=== PATIENT | male | born 2000 | race Hispanic/Latino ===

== ENCOUNTER 2021-06-15 03:31 | Emergency (ER) | payer OTHER ==
[2021-06-15] MEDS ORDERED: KETOROLAC 30 MG/ML INJ ONE (03:55)
--- NOTE | 2021-06-15 05:00 | EDPHYS ---
Physician Documentation [facility] Name: Andi Mcdermott Age: 20 yrs Sex: Male : 2000 Arrival Date: 06/15/2021 Time: 03:40 Bed 5 Private MD: ED Physician Richard Cota HPI: 06/15 03:53 This 20 yrs old Male presents to ER via Wheelchair with complaints of Back mh7 Injury. 03:53 The patient presents with pain that is acute, with no known mechanism of injury. The mh7 symptoms are located in the low back. Onset: The symptoms/episode began/occurred today, at 02:45. The pain does not radiate. Associated signs and symptoms: Pertinent negatives: abdominal pain, chest pain, constipation, dysuria, fever, headache, hematuria, incontinence, nausea, numbness, tingling, urinary retention, vomiting, weakness. The problem was sustained from unknown cause. Modifying factors: The patient symptoms are alleviated by nothing, the patient symptoms are aggravated by movement, standing, walking. Severity of symptoms: At their worst the symptoms were moderate, earlier today, in the emergency department the symptoms are unchanged. Historical: - Allergies: 03:47 seasonal allergies; em - PMHx: 03:47 None; em - PSHx: 03:47 None; em - Social history:: Smoking status: Patient denies any tobacco usage or history of. ROS: 03:53 Constitutional: Negative for fever, chills, and weight loss, Eyes: Negative for injury, mh7 pain, redness, and discharge, ENT: Negative for injury, pain, and discharge, Neck: Negative for injury, pain, and swelling, Cardiovascular: Negative for chest pain, palpitations, and edema, Respiratory: Negative for shortness of breath, cough, wheezing, and pleuritic chest pain, Abdomen/GI: Negative for abdominal pain, nausea, vomiting, diarrhea, and constipation, : Negative for injury, bleeding, discharge, and swelling, MS/Extremity: Negative for injury and deformity, Skin: Negative for injury, rash, and discoloration, Neuro: Negative for headache, weakness, numbness, tingling, and seizure, Psych: Negative for depression, anxiety, suicide ideation, homicidal ideation, and hallucinations, Allergy/Immunology: Negative for hives, rash, and allergies, Endocrine: Negative for neck swelling, polydipsia, polyuria, polyphagia, and marked weight changes, Hematologic/Lymphatic: Negative for swollen nodes, abnormal bleeding, and unusual bruising. Exam: 03:53 Constitutional: This is a well developed, well nourished patient who is awake, alert, mh7 and in no acute distress. Head/Face: Normocephalic, atraumatic. Eyes: Pupils equal round and reactive to light, extra-ocular motions intact. Lids and lashes normal. Conjunctiva and sclera are non-icteric and not injected. Cornea within normal limits. Periorbital areas with no swelling, redness, or edema. Neck: Trachea midline, no thyromegaly or masses palpated, and no cervical lymphadenopathy. Supple, full range of motion without nuchal rigidity, or vertebral point tenderness. No Meningismus. Chest/axilla: Normal chest wall appearance and motion. Nontender with no deformity. No lesions are appreciated. Cardiovascular: Regular rate and rhythm with a normal S1 and S2. No gallops, murmurs, or rubs. Normal PMI, no JVD. No pulse deficits. Respiratory: Lungs have equal breath sounds bilaterally, clear to auscultation and percussion. No rales, rhonchi or wheezes noted. No increased work of breathing, no retractions or nasal flaring. Abdomen/GI: Soft, non-tender, with normal bowel sounds. No distension or tympany. No guarding or rebound. No evidence of tenderness throughout. Skin: Warm, dry with normal turgor. Normal color with no rashes, no lesions, and no evidence of cellulitis. MS/ Extremity: Pulses equal, no cyanosis. Neurovascular intact. Full, normal range of motion. 03:53 Psych: Awake, alert, with orientation to person, place and time. Behavior, mood, and affect are within normal limits. 03:53 Neuro: Orientation: is normal, Mentation: is normal, Memory: is normal, Cranial nerves: grossly normal, Cerebellar function: is grossly normal, Motor: is normal, Sensation: is normal, Gait: limited by pain, seizure activity, is not displayed by the patient, Abnormal movements: there are no abnormal movements. 03:53 Back: pain, that is mild, ROM is painful, with rotation to the right, normal spinal mh7 alignment noted, CVA tenderness, is absent, muscle spasm, is appreciated in the lumbar area and right low back, Straight leg raises: of both lower extremities does not illicit pain. Vital Signs: 03:44 BP 144 / 85; Pulse 97; Resp 18; Temp 98.9; Pulse Ox 100% on R/A; Weight 102.06 kg; em Height 5 ft. 10 in. (177.80 cm); 03:44 Body Mass Index 32.28 (102.06 kg, 177.80 cm) em MDM: 04:57 Differential diagnosis: arthritis, chronic back pain, Fracture Ligament Injury mh7 Osteoarthritis ruptured disc, sprain, vertebral fracture. Data reviewed: vital signs, nurses notes, radiologic studies, CT scan. Data interpreted: Pulse oximetry: on room air is 100 %. Interpretation: normal. Counseling: I had a detailed discussion with the patient and/or guardian regarding: the historical points, exam findings, and any diagnostic results supporting the discharge/admit diagnosis, the presence of at least one elevated blood pressure reading (>120/80) during this emergency department visit, radiology results, the need for outpatient follow up, a neurosurgeon, to return to the emergency department if symptoms worsen or persist or if there are any questions or concerns that arise at home. Response to treatment: the patient's symptoms have markedly improved after treatment. 05:00 Patient medically screened. [facility] 06/15 03:52 Order name: CT Lumbar Spine Wo Con [facility] Administered Medications: 03:56 Drug: Ketorolac 60 mg Route: IM; Site: left deltoid; dc2 04:40 Follow up: Response: Pain is decreased dc2 Disposition Summary: 06/15/21 05:00 Discharge Ordered Location: Home [facility] Problem: an acute exacerbation [facility] Symptoms: have improved [facility] Condition: Stable [facility] Diagnosis - Low back pain - Disc protrusion 7 Followup: 7 - With: Private Physician - When: 1 - 2 days - Reason: Worsening of condition, Recheck today's complaints, Continuance of care, Re-evaluation by your physician Followup: [facility] - With: Andrea Dent MD - When: 1 - 2 days - Reason: Worsening of condition, Recheck today's complaints Discharge Instructions: - Discharge Summary Sheet [facility] - Acute Back Pain, Adult 7 - Herniated Disk, [id number] [facility] - Form - Excuse from Work, School, or Physical Activity [facility] Forms: - Medication Reconciliation Form [facility] - Thank You Letter [facility] - Antibiotic Education [facility] - Prescription Opioid Use [facility] Prescriptions: - Ibuprofen 800 mg Oral Tablet - take 1 tablet by ORAL route every 8 hours As needed take with food; 15 tablet; mh7 Refills: 0, Product Selection Permitted - methocarbamol 500 mg Oral Tablet - take 1 tablet by ORAL route 4 times per day; 20 tablet; Refills: 0, Product [facility] Selection Permitted Signatures: Dispatcher [employer] Shaun Gutierrez RN RN Richard Dunn MD MD 7 Angela Sotomayor RN RN dc2 Corrections: (The following items were deleted from the chart) 03:47 03:47 Allergies: No Known Allergies; em em
--- NOTE | 2021-06-15 05:00 | ER ---
Nurse's Notes [facility] Name: Andi Mcdermott Age: 20 yrs Sex: Male : 2000 Arrival Date: 06/15/2021 Time: 03:40 Bed 5 Private MD: Diagnosis: Low back pain-Disc protrusion Presentation: 06/15 03:44 Chief complaint: Patient states: threw back out after standing up, denies any trauma, em pain is mostly in the right lower side, pain does not radiate. Coronavirus screen: Vaccine status: Patient reports being unvaccinated. Ebola Screen: Patient negative for fever greater than or equal to 101.5 degrees Fahrenheit, and additional compatible Ebola Virus Disease symptoms Patient denies exposure to infectious person. Patient denies travel to an Ebola-affected area in the 21 days before illness onset. No symptoms or risks identified at this time. Initial Sepsis Screen: Does the patient meet any 2 criteria? HR > 90 bpm. No. Patient's initial sepsis screen is negative. Does the patient have a suspected source of infection? No. Patient's initial sepsis screen is negative. Risk Assessment: Do you want to hurt yourself or someone else? Patient reports no desire to harm self or others. Onset of symptoms was June 15, 2021. 03:44 Method Of Arrival: Wheelchair em 03:44 Acuity: BRAYAN 4 em Triage Assessment: 04:00 General: Appears uncomfortable, well nourished, Behavior is calm, cooperative. Pain: mr2 Complains of pain in right low back. Historical: - Allergies: 03:47 seasonal allergies; em - PMHx: 03:47 None; em - PSHx: 03:47 None; em - Social history:: Smoking status: Patient denies any tobacco usage or history of. Screenin:55 Abuse screen: Denies threats or abuse. Denies injuries from another. Nutritional dc2 screening: No deficits noted. Tuberculosis screening: No symptoms or risk factors identified. Never had TB. Fall Risk None identified. No fall in past 12 months (0 pts). No secondary diagnosis (0 pts). No IV (0 pts). Ambulatory Aid- None/Bed Rest/Nurse Assist (0 pts). Gait- Impaired (20 pts.). Mental Status- Oriented to own ability (0 pts). Total Dela Cruz Fall Scale indicates No Risk (0-24 pts). Assessment: 03:45 General: Appears in no apparent distress. uncomfortable, obese, well groomed, Behavior dc2 is calm, cooperative. 03:45 Pain: Complains of pain in Right lower back. Neuro: No deficits noted. Level of dc2 Consciousness is awake, alert, obeys commands, Oriented to person, place. Respiratory: No deficits noted. Trachea midline Breath sounds are clear bilaterally. GI: No deficits noted. No signs and/or symptoms were reported involving the gastrointestinal system. Abdomen is non-distended, obese, Bowel sounds present X 4 quads. : No signs and/or symptoms were reported regarding the genitourinary system. Derm: No deficits noted. No signs and/or symptoms reported regarding the dermatologic system. Skin is intact, is healthy with good turgor. Musculoskeletal: Tenderness present in right lower back Reports pain in Right lower back since tonight while at work. Pt difficulty walking, denies incontinence, numbness or tingling. Pain is 8 out of 10 on a pain scale. Vital Signs: 03:44 BP 144 / 85; Pulse 97; Resp 18; Temp 98.9; Pulse Ox 100% on R/A; Weight 102.06 kg; em Height 5 ft. 10 in. (177.80 cm); 03:44 Body Mass Index 32.28 (102.06 kg, 177.80 cm) em ED Course: 03:40 Patient arrived in ED. wm 03:44 Richard Cota MD is Attending Physician. 7 03:45 Patient has correct armband on for positive identification. Bed in low position. Call dc2 light in reach. Side rails up X 1. monitoring tech on. Pulse ox on. NIBP on. Door closed. Lights dimmed. 03:46 Triage completed. em 03:47 Arm band placed on. em 03:51 Stuart Estrada RN is Primary Nurse. mr2 03:56 Assist provider with bone marrow aspiration. dc2 04:[address] dc2 04:[address] back from [address]. dc2 04:12 CT Lumbar Spine Wo Con In Process Unspecified. EDMS 04:59 Andrea Dent MD is Referral Physician. mh7 05:06 Patient did not have IV access during this emergency room visit. dc2 Administered Medications: 03:56 Drug: Ketorolac 60 mg Route: IM; Site: left deltoid; dc2 04:40 Follow up: Response: Pain is decreased dc2 Outcome: 05:00 Discharge ordered by . autumn 05:07 Discharged to home ambulatory. dc2 05:07 Condition: stable 05:07 Discharge instructions given to patient, Instructed on discharge instructions, Demonstrated understanding of instructions, follow-up care, medications, Prescriptions given X 3. 05:07 Patient left the ED. dc2 Signatures: Dispatcher [employer] Shaun Gutierrez, RN RN Richard Cota MD MD 7 Laly Elizabeth Mike, RN RN 2 Angela Sotomayor RN RN dc2 Corrections: (The following items were deleted from the chart) 03:47 03:47 Allergies: No Known Allergies; [facility] 04:00 03:45 Pain: Complains of pain in Right lower back dc2 dc2
[2021-06-15 05:14] VITALS: BP 144/85; TEMP 98.9; O2SAT 100
--- NOTE | 2021-06-15 11:11 | RAD REPORT ---
EXAM DESCRIPTION: CTSpine Lumbar Wo Con06/15/2021 6:29 am CLINICAL HISTORY: 20 years Male LOWER BACK PAIN TECHNIQUE: Noncontrast lumbar spine CT with sagittal and coronal reconstructions. All CT scans at [facility] facility use dose modulation, iterative reconstruction, and/or weight based dosing when appropriat e to reduce radiation dose to as low as reasonably achievable. COMPARISON: None. FINDINGS: No acute fracture. Canal: Broad central disc protrusion at L4-L5 with mild spinal canal stenosis. Alignment: Normal. Soft tissues: Unremarkable. Other: Visualized retroperitoneal structures are unremarkable. IMPRESSION 1. No [id number] findings. 2. Broad central disc protrusion at L4-L5 with mild spinal canal stenosis. This can be further evalua leandro with MRI. Electronically signed by: Fito Hernandez MD 06/15/2021 4:49 AM [employer]ERILE INSTRUMENT TECHNICIAN Due to temporary technical issues with the PACS/Fluency reporting system, reports are being signed by the in house radiologists without review as a courtesy to insure prompt reporting. The interpreting radiologist is fully responsible for the content of the report.
--- OUTSIDE RECORDS SUMMARY | 2021-06-20 16:15 | XMS REPORT | Continuity of Care Document ---
:[address] [facility] Address [address] [place] [address] Care Team Providers Name Role Phone John HURTADO Attending Clinician Gladis Tsai MD Attending Clinician Dinh Arango Attending Clinician Dinh NEUMANN Attending Clinician Unavailable John HURTADO Admitting Clinician Payers Payer Name Policy Type Policy Number Effective Date Expiration Date S ource Problems Condition Condition Condition Status Onset Resolution Last Treating Co mments Source Name Details Category Date Date Treatment Clinician Date Weight Weight Disease Active 2020-0 Univers loss, loss, 8-22 [place] [facility] No known No known Disease Unive rs active active ity of problems problems [facility] Allergies, Adverse Reactions, Alerts Allergy Allergy Status Severity Reaction(s) Onset Inactive Treating Comm ents Source Name Type Date Date Clinician Amoxicil Propensi Active Rash 2020-0 Univer s naima-Pot ty to 8-22 ity of Clavulan adverse 00:00: [place] ate reaction 00 [facility] Branch AMOXICIL DRUG Active Rash 2020-0 Univers NAIMA-POT 8-22 ity of CLAVULAN 00:00: [place] ATE 00 Medical Branch Social History Social Habit Start Date Stop Date Quantity Comments Source Sex Assigned At Uni versity of [facility] Exposure to SARS-CoV-2 Not sure [facility] [place] (event) [facility] Smoking Status Start Date Stop Date Source Unknown if ever smoked [facility] y [facility] Medications Ordered Filled Start Stop Current Ordering Indication Dosage Frequency Signature Comments Components Source Medication Medication Date Date Medication? Clinician (SIG) Name Name D5W 0.45% 2020-0 Yes IV Univers NaCl 8-23 Infusion, ity of (1/2NS) 1 L 03:00[place] 125 [place] + KCL 20 00 mL/hr, Medical mEq CONTINUOUS Branch , Starting 03/29/20 at 2200, Until Discontinu ed, Routine acetaminoph 2020-0 Yes 650mg 650 mg, Un juan josé en 03-30 Oral, ity of (TYLENOL) 02:52: Q6HPRN, [place] tablet 650 16 Starting Medic al mg Sat Branch 03/29/20 at 2152, Until Discontinu ed, Routine, Pain (scale 1-3) ondansetron 2020-0 Yes 4mg 4 mg, Slow Univers (ZOFRAN 03-30 IV Push, ity of (PF)) 02:52: Q6HPRN, [place] injection 4 13 Starting Medi dejuan mg Sat Branch 03/29/20 at 2152, Until Discontinu ed, Routine, Nausea and Vomiting (N/V) cefOXitin 2020-0 2020- No 2g 2 g, IV Univ ers in 03-30 Piggyback, ity of dextrose, 01:00: 00:37 ONCE, 1 [place] iso-osm 00 :00 dose, Sat Medical (MEFOXIN) 2 03/29/20 at Br anch gram/50 mL 2000, 50 DUPLEX BAG mL
Reas 2 g on for Anti-Infec tive: Empiric Non-Surgic al Prophylaxi s
Durat ion of therapy: 72 hours ciprofloxac 2020-0 Yes [id number] 500mg Take 1 Univers in HCl 8-23 tablet by ity of (CIPRO) 500 00:00: mouth [place] mg tablet 00 every 12 Medica l (twelve) Branch hours. metroNIDAZO 2020-0 Yes [id number] 500mg Take 1 Univers LE (FLAGYL) 8-23 tablet by ity of 500 mg 00:00: mouth [place] tablet 00 every 8 Medical (eight) Branch hours. ondansetron 2020-0 Yes [id number] 4mg Take 1 Univers 4 mg tablet 8-23 tablet by ity of 00:00: mouth [place] 00 every 8 Medical (eight) Branch hours as needed for Nausea and Vomiting (N/V). acetaminoph 2020-0 2020- No [id number] 650mg Take 2 Univers en 325 mg 03-30 08-24 tablets by ity of tablet 00:00: 04:59 mouth [place] 00 :00 every 6 Medical (six) Branch hours as needed for Pain (scale 1-3) or Pain (scale 4-6). iohexol 2019- No 100mL 100 mL, Unive rs (OMNIPAQUE 03-29 Intravenou it y of 350 22:45: 22:26 s, ONCE, 1 [place] BULK-100 00 :00 dose, Sat Medica l mL) 03/29/20 at Branch injection 1745, 100 mL Routine ondansetron No 4mg 4 mg, Slow Univers (ZOFRAN 03-29 IV Push, ity of (PF)) 22:15: 21:04 ONCE, 1 [place] injection 4 00 :00 dose, Sat Med ical mg 03/29/20 at Branch 1715, ASIA NaCl 0.9% No 1000mL at 999 Uni vers (NS) bolus 03-29 mL/hr, ity of infusion 21:00: 22:01 1,000 mL, [place] as 1,000 mL 00 :00 IV Medical Infusion, Branch ONCE, 1 dose, 03/29/20 at 1600, ASIA No known No Univers medications [facility] Vital Signs Vital Name Observation Time Observation Value Comments Source Systolic blood 2020-03-30 17:38:00 141 mm[Hg] Univer sity of pressure [facility] Diastolic blood 2020-03-30 17:38:00 89 mm[facility]Hg[facility] rate 2020-03-30 17:38:00 53 /min [facility] Body temperature 2020-03-30 17:38:00 36.11 [facility] Respiratory rate 2020-03-30 17:38:00 18 /min [facility] Oxygen saturation in 2020-03-30 17:38:00 98 /min [facility] Arterial blood by [facility] Pulse oximetry [place] Body height 2020-03-30 04:30:00 172.7 cm [facility] Body weight 2020-03-30 04:30:00 83.099 kg [facility] BMI 2020-03-30 04:30:00 27.86 kg/m2 [facility] Systolic blood 2020-03-30 00:00:00 137 mm[Hg] Univer sity of pressure [facility] Diastolic blood 2020-03-30 00:00:00 97 [facility]Hg[facility] Heart rate 2020-03-30 00:00:00 75 /min [facility] Body temperature 2020-03-30 00:00:00 36.83 [facility] Respiratory rate 2020-03-30 00:00:00 27 /min [facility] Oxygen saturation in 2020-03-30 00:00:00 98 /min [facility] Arterial blood by [facility] Pulse oximetry [place] Body weight 2020-03-29 20:35:00 83.008 kg [facility] Procedures Procedure Date / Time Performed Performing Clinician Sourc e PHOSPHORUS 2020-03-30 10:13:00 [facility] MAGNESIUM 2020-03-30 10:13:00 [facility] BASIC METABOLIC PANEL 2020-03-30 10:13:00 [facility] (NA, K, CL, CO2, [facility] Branch GLUCOSE, BUN, CREATININE, CA) CBC WITH DIFF 2020-03-30 10:13:00 [facility] COVID-19 (ID NOW RAPID 2020-03-29 23:15:00 Yury Neumann [facility] TESTING) [facility] CT ABDOMEN PELVIS W 2020-03-29 22:31:21 Yury Neumann [facility] CONTRAST [facility] ADC / LCC - DRUG 2020-03-29 20:57:[address] [facility] SCREEN TRIAGE Medical Branch LIPASE 2020-03-29 20:57:00 Yury Neumann [facility] HEPATIC FUNCTION PANEL 2020-03-29 20:57:00 Yury Neumann [facility] ([id number]) Medical [place] (ALB,T.PRO,BILI T,BU/BC,ALT,AST,ALK PHOS) BASIC METABOLIC PANEL 2020-03-29 20:57:00 Yury Neumann [facility] (NA, K, CL, CO2, Medical Branch GLUCOSE, BUN, CREATININE, CA) CBC WITH DIFF 2020-03-29 20:57:00 Yury Neumann [facility] URINALYSIS 2020-03-29 20:57:00 Yury Neumann [facility] Encounters Start End Encounter Admission Attending Care Care Encounter Source Date/Time Date/Time Type Type Clinicians Facility Department ID 2020-03-29 2020-03-30 Emergency Javier Lopez [id number] Univers 20:15:00 17:49:00 Jani Tsai [id number] [facility] [id number] [facility] [id number] [facility] 091 Branch 2020-03-29 2020-03-29 Emergency X [facility] ERT [id number] Univers 20:12:00 20:12:00 [facility] 2020-03-29 2020-03-29 Emergency Yury Neumann [facility] [id number] Univers 15:38:00 19:38:00 Javier Lopez [id number] [facility] [id number] [facility] [id number] [facility] [place] 084 Branch 2020-03-29 2020-03-29 Emergency X [facility] ERT [id number] Univers 15:38:00 15:38:00 [facility] Results Test Description Test Time Test Comments Results Result Comments Source Basic Metabolic Panel (NA, K, CL, CO2, GLUCOSE, BUN, 2020-03 11:36:00 CREATININE, CA) Test Item Value Reference Range Interpretation Comme nts NA (test code = 0689376098) 140 mmol/L 135-145 K (test code = 3189931805) 4.0 mmol/L 3.5-5 CL (test code = 9060856904) 105 mmol/L 98-108 CO2 TOTAL (test code = 3552796748) 29 mmol/L 23-31 AGAP (test code = 1586603121) 2-16 BUN (test code = 3344526666) 3 mg/dL 7-23 L GLUCOSE (test code = 7282533711) 86 mg/dL 70-110 CREATININE (test code = 0.80 mg/dL 0.6-1.25 3214452771) CALCIUM (test code = 9627014216) 9.4 mg/dL 8.6-10.6 eGFR Calculation (Non- mL/min/1.73m2 [place]) (test code = 3278683717) eGFR Calculation ( mL/min/1.73m2 [place]) (test code = 1284200532) ELAINA (test code = ELAINA) Association of Glomerular Filtration Rate (GFR) and Staging of Kidney Disease* + +-------- + ------+| GFR (mL/min/1.73 m2) ?| With Kidney Damage ?| ?Without Kidney Damage+ +-- + +| ?>90 ?| ?Stage one ?| ? Normal ?+ +------- + -------+| ?60-89 ?| ?Stage two ?| ? Decreased GFR ? + +-------- + ------+| ?30-59 ?| ?Stage three ?| ? Stage three ? + +-------- + ------+| ?15-29 ?| ?Stage four ? | ? Stage four ?+ +------- + -------+| ?<15 (or dialysis) ? ?| ?Stage five ? | ? Stage five ?+ +------- + -------+ *Each stage assumes the associated GFR level has been in effect for at least three months. ?Stages 1 to 5, with or without kidney disease, indicate chronic kidney disease. Notes: Determination of stages one and two (with eGFR >59mL/min/1.73 m2) requires estimation of kidney damage for at least three months as defined by structural or functional abnormalities of the kidney, manifested by either:Pathological abnormalities or Markers of kidney damage (including abnormalities in the composition of the blood or urine or abnormalities in imaging tests). Lab Interpretation (test code = Abnormal 91754-7) [facility] [id number] 11:36:00 Test Item Value Reference Range Interpretation Comments MAGNESIUM (test code = 3322985944) 2.1 mg/dL 1.7-2.4 Lab Interpretation (test code = Normal 86388-5) [facility] [id number] 11:36:00 Test Item Value Reference Range Interpretation Comments PHOSPHORUS (test code = 5320044174) 4.8 mg/dL 2.5-5 Lab Interpretation (test code = Normal 90489-1) [facility] with [id number] 10:47:00 Test Item Value Reference Range Interpretation Comments WBC (test code = See_Comment [Automated 6690-2) message] The sy stem which generated this result transmitted reference range : 4.50 - 13.50 10*3/?L. The reference range was not used to interpret this result as normal/abnormal . RBC (test code = See_Comment H [Automated 789-8) message] The sy stem which generated this result transmitted reference range : 4.50 - 5.30 10*6/?L. The reference range was not used to interpret this result as normal/abnormal . HGB (test code = 15.8 g/dL 13-16 718-7) HCT (test code = 48.2 % 37-49 4544-3) MCV (test code = 89.9 fL 78-95 787-2) MCH (test code = 29.5 pg 26-32 785-6) MCHC (test code = 32.8 g/dL 32-36 786-4) RDW-SD (test code = 41.8 fL 38.5-49 67213-2) RDW-CV (test code = 12.6 % 11.5-14 788-0) PLT (test code = See_Comment [Automated 777-3) message] The sy stem which generated this result transmitted reference range : 133 - 320 10*3/ ?L. The reference r juan was not used to interpret this result as normal/abnormal . MPV (test code = 12.0 fL 9.3-12.9 66108-4) NRBC/100 WBC (test See_Comment [Automat ed code = 2655633297) message] The system which generated this result transmitted reference range : 0.0 - 10.0 /100 WBCs. The refer ence range was not u sed to interpret th is result as normal/abnormal . NRBC x10^3 (test code <0.01 See_Comment [Auto mated = 9871089155) message] The s ystem which generated this result transmitted reference range : 10*3/?L. The reference range was not used to interpret this result as normal/abnormal . GRAN MAT (NEUT) % 50.7 % (test code = 770-8) IMM GRAN % (test code 0.30 % = 2169380718) LYMPH % (test code = 39.3 % 736-9) MONO % (test code = 8.7 % 5905-5) EOS % (test code = 0.4 % 713-8) BASO % (test code = 0.6 % 706-2) GRAN MAT x10^3(ANC) 4.05 10*3/uL 1.5-10.3 (test code = 9231740449) IMM GRAN x10^3 (test <0.03 0-0.06 code = 5502525957) LYMPH x10^3 (test code 3.13 10*3/uL 0.7-7.4 = 731-0) MONO x10^3 (test code 0.69 10*3/uL 0-0.5 H = 742-7) EOS x10^3 (test code = 0.03 10*3/uL 0-0.4 711-2) BASO x10^3 (test code 0.05 10*3/uL 0-0.1 = 704-7) Lab Interpretation Abnormal (test code = 63187-8) [facility] (ID NOW RAPID TESTING)2020-03-30 00:14:00 Test Item Value Reference Range Interpretation Comments SARS-CoV-2 Rapid ID NOW Not Detected Not Detected (test code = 60388-4) ELAINA (test code = ELAINA) ID NOW COVID-19 Assay is an isothermal nucleic acid amplification test intended for the qualitative detection of nucleic acid from SARS-CoV-2 viral RNA in nasopharyngeal (CLINICAL OPERATIONS LEADER) specimens. It is used under Emergency Use Authorization (EUA) by FDA. The limit of detection (LOD) of the assay is 125 Genome Equivalents/mL. A positive result is indicative of the presence of SARS-CoV-2 RNA. ?Clinical correlation with patient history and other diagnostic information is necessary to determine patient infection status. A negative (Not Detected) result does not preclude SARS-CoV-2 infection. In patients with clinical symptoms and other tests that are consistent with SARS-CoV-2 infection, negative results should be treated as presumptive negative and a new specimen should be tested with alternative PCR molecular test. Invalid: Please collect a new specimen for repeat patient testing if clinically indicated. Lab Interpretation Normal (test code = 98426-7) [facility] ABDOMEN PELVIS W [id number] 22:52:14Thickening and wall enhancement of the appendix, 11 mm, likelyappendicitis. No mechanical bowel obstruction, abscess, or free air. CLINICAL HIS TORY:Unintended weight loss. Abdominal pain. Vomiting. COMPARISON:None TECHNIQUE: CT scan of the abdomen and pelvis ?performed. Contiguous axial CT imageswere obtained after administration of intravenous contrast material. Study was performed using ALARA principle. FINDINGS:Liver, gallbladder, pancreas, spleen, adrenal glands, kidneys unremarkable. Equivocal wall thickening of the stomach, possible gastritis. No mechanicalbowel obstruction, abscess, or free air. ?No significant stool burden.Collapse of most of the colon. There is wall enhancement and thickening of the appendix, measuring 11 mm,likely appendicitis. No abscess or free air. Ileocolic lymph nodes, likely reactive, up to 8 mm. There are noappreciable acute bony abnormalities. [facility], Radiant Results Inft User - 03/29/2020 5:53 PM CDTCLINICAL HISTORY:Unintended weight loss. Abdominal pain. Vomiting.COMPARISON:NoneTECHNIQUE: CT scan ofthe abdomen and pelvis performed. Contiguous axial CT imageswere obtained after administration of in travenous contrast material.Study was performed using ALARA principle. FINDINGS:Liver, gallbladder, pancreas, spleen, adrenal glands, kidneys unremarkable.Equivocal wall thickening of the stomach, possible gastritis. No mechanicalbowel obstruction, abscess, or free air. No significant stool burden.Collapse of most of the colon.There is wall enhancement and thickening of the appendix, measuring 11 mm,likely appendicitis. No abscess or free air.Ileocolic lymph nodes, likely reactive, up to 8 mm. There are noappreciable acute bony abnormalities.IMPRESSIONThickening and wall enhancement of the appendix, 11 mm, likelyappendicitis.No mechanical bowel obstruction, abscess, or free air. [facility] (NA, K, CL, CO2, GLUCOSE, BUN, CREATININE, CA)2020-03-29 21:30:00 Test Item Value Reference Range Interpretation Comments NA (test code = 139 mmol/L 135-145 1913310972) K (test code = 3.9 mmol/L 3.5-5 3940532987) CL (test code = 102 mmol/L 98-108 5599998795) CO2 TOTAL (test code = 27 mmol/L 23-31 0557596735) AGAP (test code = 2-16 9389323041) BUN (test code = 5 mg/dL 7-23 L 7975348550) GLUCOSE (test code = 113 mg/dL 70-110 H 6665309659) CREATININE (test code = 0.86 mg/dL 0.6-1.25 8328327179) CALCIUM (test code = 9.6 mg/dL 8.6-10.6 8906226839) eGFR Calculation mL/min/1.73m2 (Non-) (test code = 9013453519) eGFR Calculation mL/min/1.73m2 () (test code = 7483797372) ELAINA (test code = ELAINA) Association of Glomerular Filtration Rate (GFR) and Staging of Kidney Disease* + --+ --+ ------+| GFR (mL/min/1.73 m2) ?| With Kidney Damage ?| ?Without Kidney Damage+ --------+ --------+ +| ?>90 ?| ?Stage one ?| ? Normal ?+ ---+ ---+ -------+| ?60-89 ?| ?Stage two ?| ? Decreased GFR ? + --+ --+ ------+| ?30-59 ?| ?Stage three ?| ? Stage three ? + --+ --+ ------+| ?15-29 ?| ?Stage four ? | ? Stage four ?+ ---+ ---+ -------+| ?<15 (or dialysis) ? ?| ?Stage five ? | ? Stage five ?+ ---+ ---+ -------+ *Each stage assumes the associated GFR level has been in effect for at least three months. ?Stages 1 to 5, with or without kidney disease, indicate chronic kidney disease. Notes: Determination of stages one and two (with eGFR >59mL/min/1.73 m2) requires estimation of kidney damage for at least three months as defined by structural or functional abnormalities of the kidney, manifested by either:Pathological abnormalities or Markers of kidney damage (including abnormalities in the composition of the blood or urine or abnormalities in imaging tests). Lab Interpretation Abnormal (test code = 89977-9) [facility] Function [facility] (ALB, T.PRO, BILI T, BU/BC, ALT, AST, ALK PHOS)2020-03-29 21:30:00 Test Item Value Reference Range Interpretation Comments TOTAL BILI (test code = 5518670072) 0.8 mg/dL 0.1-1.1 BILI UNCON (test code = 2916856940) 0.8 mg/dL 0.1-1.1 BILI CONJ (test code = 5796842603) 0.0 mg/dL 0-0.3 T PROTEIN (test code = 1503315326) 7.6 g/dL 6.3-8.2 ALBUMIN (test code = 7841088093) 4.8 g/dL 3.5-5 ALK PHOS (test code = 0928762456) 78 U/L 34-122 ALTv (test code = 1742-6) 23 U/L 5-50 AST(SGOT) (test code = 1430419961) 25 U/L 13-40 Lab Interpretation (test code = Normal 03232-2) [facility]ano[facility]ase [id number] 21:30:00 Test Item Value Reference Range Interpretation Comments LIPASE (test code = 0504771324) 53 U/L 0-220 Lab Interpretation (test code = Normal 72564-5) [facility] / C - DRUG SCREEN [id number] 21:23:00 Test Item Value Reference Range Interpretation Comments BENZO U (test code = Negative Negative 3562074580) CATHLEEN U (test code = Negative Negative 3480351791) AMPHET (test code = Negative Negative 4858620574) THC (test code = Presumptive Negative A Confirmatio n of 9689772443) Positive Presumptive Positive THC result requires physician order . METHADONE (test code Negative Negative = 6696601384) Meth U (test code = Negative Negative 5117498725) OPIATES (test code = Negative Negative 6284454526) Cocaine Metabolite Negative Negative (test code = 2962561298) PROPOXY (test code = Negative Negative 4867511977) Tric U (test code = Negative Negative 9408292376) PCP (test code = Negative Negative 1222155234) OXYCOD (test code = Negative Negative 5199260872) ELAINA (test code = Urine Drug Cutoff ELAINA) Ranges Benzodiazepines: ? ? 150 ng/mLBarbiturates : ?200 ng/mLAmphetamine: ? 500 ng/mLCannabinoids : ?50 ?ng/mLMethadone: ? 200 ng/mLMethamphetam ine: ? ? 500 ng/mL Opiates: ? 100 ng/mL or 2000 ng/mLCocaine: ? 150 ng/mLPropoxyphene : ?300 ng/mLTricyclics: ?300 ng/mLOxycodone: ? 100 ng/mLPCP: ? 25 ?ng/mL The results are to be used only for medical (i.e., treatment) purposes. Unconfirmed screening results must not be used for non-medical purposes (e.g., employment testing, legal testing). Lab Interpretation Abnormal (test code = 56678-7) [facility]anoUrinalysis2020-08-22 21:22:00 Test Item Value Reference Range Interpretation Comments APPEARANCE (test code = Hazy Clear A 2320595273) COLOR (test code = Agatha Yellow A 2395909237) PH (test code = 4.8-8.0 9198000206) SP GRAVITY (test code = 1.003-1.030 0244799277) GLU U QUAL (test code = Normal Normal 0467126768) BLOOD (test code = Negative Negative 0644083174) KETONES (test code = 5 mg/dL Negative A 2763575658) PROTEIN (test code = 30 mg/dL Negative A 2887-8) UROBILIN (test code = 4.0 mg/dL Normal A 2692132454) BILIRUBIN (test code = Negative Negative 0202998525) NITRITE (test code = Negative Negative 1908357661) LEUK MANISHA (test code = Negative Negative 8450288363) RBC/HPF (test code = See_Comment [Autom ated message] 0412047749) The system [employer] generated this result transmit leandro reference range : 0 - 3 HPF. The refe rence range was not u sed to interpret th is result as normal/abnormal . WBC/HPF (test code = See_Comment [Autom ated message] 4075859341) The system [employer] generated this result transmit leandro reference range : 0 - 5 HPF. The refe rence range was not u sed to interpret th is result as normal/abnormal . BACTERIA (test code = Few Negative A 9301871700) MUCOUS (test code = Marked Negative LPF A 7789882070) SQ EPITH (test code = <1 HPF 0748450045) HYAL CAST (test code = See_Comment H [Aut omated message] 3652743078) The system [employer] generated this result transmit leandro reference range : <=2 LPF. The refere nce range was not u sed to interpret th is result as normal/abnormal . Lab Interpretation (test Abnormal code = 41602-3) [facility] with [id number] 21:07:00 Test Item Value Reference Range Interpretation Comments WBC (test code = See_Comment [Automated 6690-2) message] The sy stem which generated this result transmitted reference range : 4.50 - 13.50 10*3/?L. The reference range was not used to interpret this result as normal/abnormal . RBC (test code = See_Comment H [Automated 789-8) message] The sy stem which generated this result transmitted reference range : 4.50 - 5.30 10*6/?L. The reference range was not used to interpret this result as normal/abnormal . HGB (test code = 16.8 g/dL 13-16 H 718-7) HCT (test code = 49.6 % 37-49 H 4544-3) MCV (test code = 86.7 fL 78-95 787-2) MCH (test code = 29.4 pg 26-32 785-6) MCHC (test code = 33.9 g/dL 32-36 786-4) RDW-SD (test code = 39.1 fL 38.5-49 61970-0) RDW-CV (test code = 12.4 % 11.5-14 788-0) PLT (test code = See_Comment [Automated 777-3) message] The sy stem which generated this result transmitted reference range : 133 - 320 10*3/ ?L. The reference r juan was not used to interpret this result as normal/abnormal . MPV (test code = 11.7 fL 9.3-12.9 09875-4) NRBC/100 WBC (test See_Comment [Automat ed code = 0867208560) message] The system which generated this result transmitted reference range : 0.0 - 10.0 /100 WBCs. The refer ence range was not u sed to interpret th is result as normal/abnormal . NRBC x10^3 (test code <0.01 See_Comment [Auto mated = 9249851985) message] The s ystem which generated this result transmitted reference range : 10*3/?L. The reference range was not used to interpret this result as normal/abnormal . GRAN MAT (NEUT) % 76.5 % (test code = 770-8) IMM GRAN % (test code 0.40 % = 1319154388) LYMPH % (test code = 15.4 % 736-9) MONO % (test code = 7.3 % 5905-5) EOS % (test code = 0.1 % 713-8) BASO % (test code = 0.3 % 706-2) GRAN MAT x10^3(ANC) 7.42 10*3/uL 1.5-10.3 (test code = 7957966697) IMM GRAN x10^3 (test 0.04 10*3/uL 0-0.06 code = 5265001434) LYMPH x10^3 (test code 1.50 10*3/uL 0.7-7.4 = 731-0) MONO x10^3 (test code 0.71 10*3/uL 0-0.5 H = 742-7) EOS x10^3 (test code = <0.03 0-0.4 711-2) BASO x10^3 (test code 0.03 10*3/uL 0-0.1 = 704-7) Lab Interpretation Abnormal (test code = 81779-7) [facility]"
== END 2021-06-15 05:07 | disposition home or self-care (01) ==
LOC: ER 03:31
DX: M51.26 Other intervertebral disc displacement, lumbar region (principal)
CPT/HCPCS: 72131; 96372; 99285

== ENCOUNTER 2022-02-18 19:53 | Emergency (ER) | payer BC, OTHER ==
[2022-02-18] MEDS ORDERED: DIPHENHYDRAMINE 50 MG/ML VIAL ONE (21:27)
[2022-02-18] MEDS ORDERED: NA CHLORIDE 0.9% 1,000 ML ONE ×2 (21:27→23:41)
[2022-02-18] MEDS ORDERED: METOCLOPRAMIDE 10 MG/2mL INJ ONE (21:28)
[2022-02-18 21:35] LABS: Absolute Lymphocytes (CBC) 1.2 K/uL (0.7-4.9); Hematocrit 50.1 % (39.6-49.0); Lymphocytes % 17.4 % (15.3-44.8); MCV 85.8 fL (80-100); MPV 10.5 fL (7.6-11.3); RBC Red Blood Cell Count 5.84 M/uL (4.33-5.43)
[2022-02-18] MEDS ORDERED: ACETAMINOPHEN 500 MG TAB ONE (21:36)
[2022-02-18 21:40] LABS: Protime INR 0.96
[2022-02-18] MEDS ORDERED: LORazepam 2 MG/ML VIAL ONE (21:45)
--- NOTE | 2022-02-18 21:51 | RAD REPORT ---
EXAM DESCRIPTION: RAD - Chest Single View - 02/18/2022 9:36 pm CLINICAL HISTORY: COUGH Chest pain. COMPARISON: No comparisons FINDINGS: Portable technique limits examination quality. The lungs are grossly clear. The heart is normal in size. No displaced fractures. IMPRESSION: No acute intrathoracic process suspected.
[2022-02-18 21:55] LABS: Albumin 4.6 g/dL (3.4-5.0); Bilirubin Direct 0.3 mg/dL (0-0.2); Magnesium 1.9 mg/dL (1.8-2.4); Potassium 3.1 mmol/L (3.5-5.1); Protein, Total 7.8 g/dL (6.4-8.2); Troponin High Sensitivity 49.3 pg/mL (<58.9)
--- NOTE | 2022-02-18 21:55 | RAD REPORT ---
EXAM DESCRIPTION: CT - Head Brain Wo Cont - 02/18/2022 9:48 pm CLINICAL HISTORY: Headache, tension-type Headache, drowsiness COMPARISON: No comparisons TECHNIQUE: All CT scans are performed using dose optimization technique as appropriate and may inclu de automated exposure control or mA/KV adjustment according to patient size. FINDINGS: No intracranial hemorrhage, hydrocephalus or extra-axial fluid collection.No areas of brai n edema or evidence of midline shift. The paranasal sinuses and mastoids are clear. The calvarium is intact. IMPRESSION: No acute intracranial abnormality.
[2022-02-18 22:58] LABS: Urine Blood Negative (Negative); Urine Glucose Negative (Negative); Urine Protein 1+ (Negative); Urine Specific Gravity 1.025 (1.005-1.030)
[2022-02-18] MEDS ORDERED: POTASSIUM 25 MEQ EFFERV TAB ONE (22:59)
[2022-02-18 23:24] LABS: Barbiturates NEGATIVE (NEGATIVE); Benzodiazepines NEGATIVE (NEGATIVE); Cocaine NEGATIVE (NEGATIVE); METHAMPHETAM NEGATIVE (NEGATIVE); Methadone NEGATIVE (NEGATIVE); Opiates NEGATIVE (NEGATIVE); Phencyclidine NEGATIVE (NEGATIVE); THC Cannibis POSITIVE (NEGATIVE)
--- NOTE | 2022-02-19 00:37 | EDPHYS ---
Physician Documentation [facility] Name: Andi Mcdermott Age: 21 yrs Sex: Male : 2000 Arrival Date: 02/18/2022 Time: 19:55 Bed 8 Private MD: ED Physician Richard Cota HPI: 02/18 21:18 This 21 yrs old Male presents to ER via Ambulatory with complaints of mh7 Headache, Nausea, Chest Pain. 21:18 The patient or guardian reports cough, that is intermittent, described as moderate, mh7 with productive sputum, that is white, difficulty breathing, flu symptoms, no appetite, vomiting. Onset: The symptoms/episode began/occurred 1 week(s) ago. Severity of symptoms: At their worst the symptoms were moderate, last night, in the emergency department the symptoms have improved, moderately. Modifying factors: The symptoms are alleviated by Mucinex, the symptoms are aggravated by nothing. Associated signs and symptoms: Pertinent positives: chest pain, with cough, nausea, rhinorrhea, vomiting, Pertinent negatives: diarrhea, ear ache, fever, sore throat. States that he coughed hard today then got a headache. Multiple family members with cold symptoms at home over the past week.. Historical: - Allergies: 20:08 Augmentin; kd3 - Home Meds: 20:08 None [Active]; kd3 - PMHx: 21:32 MENINGITIS; ld1 - Immunization history:: Adult Immunizations up to date, Adult Immunizations. - Social history:: Smoking status: Patient denies any tobacco usage or history of. ROS: 21:18 Constitutional: Negative for fever, chills, and weight loss, Eyes: Negative for injury, mh7 pain, redness, and discharge, ENT: Negative for injury, pain, and discharge, Neck: Negative for injury, pain, and swelling. 21:18 Back: Negative for injury and pain, : Negative for injury, bleeding, discharge, and swelling, MS/Extremity: Negative for injury and deformity, Skin: Negative for injury, rash, and discoloration, Psych: Negative for depression, anxiety, suicide ideation, homicidal ideation, and hallucinations, Allergy/Immunology: Negative for hives, rash, and allergies, Endocrine: Negative for neck swelling, polydipsia, polyuria, polyphagia, and marked weight changes, Hematologic/Lymphatic: Negative for swollen nodes, abnormal bleeding, and unusual bruising. 21:18 Abdomen/GI: Negative for abdominal pain, diarrhea, constipation, abdominal cramps, abdominal distension, dysphagia, hematemesis, black/tarry stool, rectal pain, rectal bleeding, bowel incontinence, flatulence. 21:18 Neuro: Negative for altered mental status, dizziness, gait disturbance, hearing loss, loss of consciousness, numbness, seizure activity, speech changes, syncope, near syncope, tingling, tinnitus, tremor, visual changes, weakness. Exam: 21:18 Constitutional: This is a well developed, well nourished patient who is awake, alert, mh7 and in no acute distress. Head/Face: Normocephalic, atraumatic. Eyes: Pupils equal round and reactive to light, extra-ocular motions intact. Lids and lashes normal. Conjunctiva and sclera are non-icteric and not injected. Cornea within normal limits. Periorbital areas with no swelling, redness, or edema. ENT: Nares patent. No nasal discharge, no septal abnormalities noted. Tympanic membranes are normal and external auditory canals are clear. Oropharynx with no redness, swelling, or masses, exudates, or evidence of obstruction, uvula midline. Mucous membranes moist. Neck: Trachea midline, no thyromegaly or masses palpated, and no cervical lymphadenopathy. Supple, full range of motion without nuchal rigidity, or vertebral point tenderness. No Meningismus. Chest/axilla: Normal chest wall appearance and motion. Nontender with no deformity. No lesions are appreciated. Cardiovascular: Regular rate and rhythm with a normal S1 and S2. No gallops, murmurs, or rubs. Normal PMI, no JVD. No pulse deficits. Respiratory: Lungs have equal breath sounds bilaterally, clear to auscultation and percussion. No rales, rhonchi or wheezes noted. No increased work of breathing, no retractions or nasal flaring. Abdomen/GI: Soft, non-tender, with normal bowel sounds. No distension or tympany. No guarding or rebound. No evidence of tenderness throughout. Back: No spinal tenderness. No costovertebral tenderness. Full range of motion. Skin: Warm, dry with normal turgor. Normal color with no rashes, no lesions, and no evidence of cellulitis. MS/ Extremity: Pulses equal, no cyanosis. Neurovascular intact. Full, normal range of motion. Neuro: Awake and alert, GCS 15, oriented to person, place, time, and situation. Cranial nerves II-XII grossly intact. Motor strength 5/5 in all extremities. Sensory grossly intact. Cerebellar exam normal. Normal gait. Psych: Awake, alert, with orientation to person, place and time. Behavior, mood, and affect are within normal limits. Vital Signs: 20:04 BP 150 / 91; Pulse 95; Resp 21; Temp 97.9(O); Pulse Ox 99% ; Weight 108.41 kg; Height 5 kd3 ft. 9 in. (175.26 cm); Pain 8/10; 21:44 BP 135 / 83; Pulse 79; Resp 33; Pulse Ox 97% on R/A; ld1 23:02 BP 143 / 89; Pulse 86; Resp 18 S; Pulse Ox 96% on R/A; as6 23:48 BP 130 / 68; Pulse 89; Resp 18; Pulse Ox 99% on R/A; ld1 02/19 00:43 BP 139 / 94; Pulse 96; Resp 16 S; Pulse Ox 95% on R/A; as6 02/18 20:04 Body Mass Index 35.29 (108.41 kg, 175.26 cm) kd3 MDM: 00:35 Differential Diagnosis: Obstructed Airway Bronchitis Influenza Upper Respiratory mh7 Infection Viral Syndrome Pneumonia. Data reviewed: vital signs, nurses notes, lab test result(s), cardiac enzymes, CBC, electrolytes, Flu: negative urinalysis, urine drug screen, COVID positive. Data interpreted: Pulse oximetry: on room air is 99 %. Interpretation: normal. Counseling: I had a detailed discussion with the patient and/or guardian regarding: the historical points, exam findings, and any diagnostic results supporting the discharge/admit diagnosis, lab results, radiology results, the need for outpatient follow up, to return to the emergency department if symptoms worsen or persist or if there are any questions or concerns that arise at home. Response to treatment: the patient's symptoms have resolved after treatment, the patient's blood pressure is in an acceptable range, mental status has returned to baseline, the patient no longer shows bradycardia, the patient is not short of breath, the patient is not tachycardic, the patient's pain is gone, the patient's temperature has normalized, patient is well hydrated. 00:[address] [facility] 02/18 21:15 Order name: Basic Metabolic Panel; Complete Time: 22:35 [facility] 02/18 21:15 Order name: CBC with Diff; Complete Time: 22:35 [facility] 02/18 21:15 Order name: D-Dimer; Complete Time: 22:35 [facility] 02/18 21:15 Order name: LFT's; Complete Time: 22:35 [facility] 02/18 21:15 Order name: Magnesium; Complete Time: 22:35 [facility] 02/18 21:15 Order name: NT PRO-BNP; Complete Time: 22:35 [facility] 02/18 21:15 Order name: PT-INR; Complete Time: 22:35 [facility] 02/18 21:15 Order name: Troponin HS; Complete Time: 22:35 [facility] 02/18 21:15 Order name: UDS; Complete Time: 23:58 [facility] 02/18 21:15 Order name: COVID-19 SARS RT PCR (Document "Date of Onset" if Symptomatic); Complete [facility] Time: 22:49 02/18 21:15 Order name: Influenza Screen (a \\T\\ B); Complete Time: 22:35 [facility] 02/18 21:15 Order name: Rapid Strep; Complete Time: 22:35 [facility] 02/18 22:26 Order name: Throat Culture [facility] 02/18 22:36 Order name: Lipase; Complete Time: 23:58 [facility] 02/18 21:15 Order name: XRAY Chest (1 view); Complete Time: 22:35 [facility] 02/18 21:15 Order name: EKG; Complete Time: 21:16 [facility] 02/18 21:15 Order name: Cardiac monitoring; Complete Time: 21:17 [facility] 02/18 21:15 Order name: EKG - Nurse/Tech; Complete Time: 21:28 [facility] 02/18 21:15 Order name: IV Saline Lock; Complete Time: 21:27 [facility] 02/18 21:15 Order name: Labs collected and sent; Complete Time: 21:27 [facility] 02/18 21:15 Order name: O2 Per Protocol; Complete Time: 21:17 [facility] 02/18 21:17 Order name: CT Head Brain wo Cont; Complete Time: 22:35 [facility] 02/18 22:58 Order name: Urine Dipstick-Ancillary; Complete Time: 23:17 [facility] 02/18 21:15 Order name: O2 Sat Monitoring; Complete Time: 21:17 [facility] 02/18 21:15 Order name: Urine Dipstick-Ancillary (obtain specimen); Complete Time: 22:59 [facility] Administered Medications: 02/18 21:28 Drug: NS 0.9% 1000 ml Route: IV; Rate: 1000 ml; Site: left wrist; 1 02/19 01:01 Follow up: Response: No adverse reaction; IV Status: Infusion continued; IV Intake: as6 1000ml 02/18 21:28 Drug: Reglan (metoCLOPramide) 10 mg Route: IVP; Site: left wrist; ld1 21:43 Follow up: Response: Adverse reaction, Physician notified ld1 21:28 Drug: Benadryl (diphenhydrAMINE) 25 mg Route: IVP; Site: left wrist; ld1 21:43 Follow up: Response: Adverse reaction, Physician notified ld1 21:32 Drug: Tylenol 1000 mg Route: PO; aa9 21:32 Follow up: Response: No adverse reaction aa9 21:44 Drug: Ativan (LORazepam) 0.5 mg Route: IVP; Site: left wrist; ld1 02/19 01:02 Follow up: Response: No adverse reaction 02/18 22:54 Drug: Potassium Effervescent Tablet 50 mEq Route: PO; as6 02/19 01:02 Follow up: Response: No adverse reaction 02/18 23:40 Drug: NS 0.9% 1000 ml Route: IV; Rate: 1000 ml; Site: left hand; aa9 02/19 01:02 Follow up: Response: No adverse reaction; IV Status: Infusion continued; IV Intake: as6 1000ml Disposition Summary: 02/19/22 00:37 Discharge Ordered Location: Home [facility] Problem: [facility] Symptoms: have improved [facility] Condition: Stable [facility] Diagnosis - SARS-associated coronavirus as the cause of diseases classified elsewhere [facility] Followup: [facility] - With: Private Physician - When: 1 - 2 days - Reason: Worsening of condition, Recheck today's complaints, Continuance of care, Re-evaluation by your physician Discharge Instructions: - Discharge Summary Sheet [facility] - COVID-19 mh7 - Things to Know about the COVID-19 Pandemic - [facility] - 10 Things You Can Do to Manage Your COVID-19 Symptoms at Home - [place] [address] - COVID-19: Quarantine vs. Isolation - [place] [address] - Prevent the Spread of COVID-19 if You Are Sick - [place] [address] Forms: - Medication Reconciliation Form [facility] - Thank You Letter [facility] - Antibiotic Education [facility] - Prescription Opioid Use [facility] Prescriptions: - Zofran 4 mg Oral Tablet - take 1 tablet by ORAL route every 12 hours As needed; 10 tablet; Refills: 0, [facility] Product Selection Permitted - Tessalon Perles 100 mg Oral Capsule - take 1 capsule by ORAL route every 8 hours As needed; 15 capsule; Refills: 0, [facility] Product Selection Permitted - Zithromax Z-Max 250 mg Oral Tablet - take 1 tablet by ORAL route as directed for 5 days Day 1 - take two (2) tablets [facility] one time. Day 2, 3, 4 , 5 take one (1) tablet once daily.; 6 tablet; Refills: 0, Product Selection Permitted - ALBUTEROL - inhale 1 puff by INHALATION route every 4-6 hours As needed; 1 Inhaler; [facility] Refills: 0, Product Selection Permitted Signatures: Dispatcher [employer] EDMS Richard Cota MD MD mh7 Ivy Moy RN RN ld1 Antonio Farley RN RN as6 Kerry Hernandez, RN RN kd3 Robina Herrera, RN RN aa9 Corrections: (The following items were deleted from the chart) 02/18 21:17 21:16 SARS-COV-2 RT PCR+MOL.LAB.BRZ ordered. EDMS EDMS 21:17 21:16 Influenza Screen (A \\T\\ B)+BA.LAB.BRZ ordered. EDMS EDMS 21:17 21:16 Group A Streptococcus Rapid Sc+BA.LAB.BRZ ordered. EDMS EDMS
--- NOTE | 2022-02-19 00:37 | ER ---
Nurse's Notes [facility] Name: Andi Mcdermott Age: 21 yrs Sex: Male : 2000 Arrival Date: 02/18/2022 Time: 19:55 Bed 8 Private MD: Diagnosis: SARS-associated coronavirus as the cause of diseases classified elsewhere Presentation: 02/18 20:04 Chief complaint: Patient states: my head started hurting. I've had meningitis before kd3 and it feels like that. I am also having a hard time breathing. I keep throwing up. Coronavirus screen: Vaccine status: Patient reports being unvaccinated. Ebola Screen: No symptoms or risks identified at this time. Initial Sepsis Screen: Does the patient meet any 2 criteria? No. Patient's initial sepsis screen is negative. Does the patient have a suspected source of infection? No. Patient's initial sepsis screen is negative. Risk Assessment: Do you want to hurt yourself or someone else? Patient reports no desire to harm self or others. Onset of symptoms was February 18, 2022. 20:04 Method Of Arrival: Ambulatory kd3 20:04 Acuity: BRAYAN 3 kd3 Triage Assessment: 20:08 Headache History: Denies prior headaches. General: Appears uncomfortable, Behavior is kd3 calm, cooperative. Pain: Pain currently is 8 out of 10 on a pain scale. Pain began gradually. Pain: Also complains of nausea. Neuro: Level of Consciousness is awake, alert, obeys commands, Oriented to person, place, time, situation. Historical: - Allergies: 20:08 Augmentin; kd3 - Home Meds: 20:08 None [Active]; kd3 - PMHx: 21:32 MENINGITIS; ld1 - Immunization history:: Adult Immunizations up to date, Adult Immunizations. - Social history:: Smoking status: Patient denies any tobacco usage or history of. Screenin:10 Abuse screen: Denies threats or abuse. Denies injuries from another. Nutritional kd3 screening: No deficits noted. Tuberculosis screening: No symptoms or risk factors identified. Fall Risk None identified. Assessment: 21:44 Reassessment: Pt c/o anxiety and restless post medication administration. Notified ERP ld1 - see MAR for orders. Will continue to monitor. 23:03 Reassessment: Patient appears in no apparent distress at this time. Patient is alert, as6 oriented x 3, equal unlabored respirations, skin warm/dry/pink. Vital Signs: 20:04 BP 150 / 91; Pulse 95; Resp 21; Temp 97.9(O); Pulse Ox 99% ; Weight 108.41 kg; Height 5 kd3 ft. 9 in. (175.26 cm); Pain 8/10; 21:44 BP 135 / 83; Pulse 79; Resp 33; Pulse Ox 97% on R/A; ld1 23:02 BP 143 / 89; Pulse 86; Resp 18 S; Pulse Ox 96% on R/A; as6 23:48 BP 130 / 68; Pulse 89; Resp 18; Pulse Ox 99% on R/A; ld1 02/19 00:43 BP 139 / 94; Pulse 96; Resp 16 S; Pulse Ox 95% on R/A; as6 02/18 20:04 Body Mass Index 35.29 (108.41 kg, 175.26 cm) kd3 ED Course: 02/18 19:55 Patient arrived in ED. bp1 20:08 Triage completed. kd3 20:08 Arm band placed on right wrist. kd3 20:10 Patient has correct armband on for positive identification. kd3 20:50 Richard Cota MD is Attending Physician. mh7 21:06 Antonio Farley, RN is Primary Nurse. as6 21:16 Primary Nurse role handed off by Antonio Farley, RN as6 21:16 Antonio Farley, RN is Primary Nurse. as6 21:26 Inserted saline lock: 20 gauge in left hand, using aseptic technique. Blood collected. aa9 21:27 Basic Metabolic Panel Sent. aa9 21:27 CBC with Diff Sent. aa9 21:27 D-Dimer Sent. aa9 21:27 LFT's Sent. aa9 21:27 Magnesium Sent. aa9 21:27 NT PRO-BNP Sent. aa9 21:27 PT-INR Sent. aa9 21:27 Troponin HS Sent. aa9 21:28 Rapid Strep Sent. ld1 21:28 Influenza Screen (a \\T\\ B) Sent. ld1 21:28 COVID-19 SARS RT PCR (Document "Date of Onset" if Symptomatic) Sent. ld1 21:38 XRAY Chest (1 view) In Process Unspecified. EDMS 21:50 CT Head Brain wo Cont In Process Unspecified. EDMS 22:45 Notified ED physician of a critical lab result(s). Covid +. tw5 02/19 01:01 No provider procedures requiring assistance completed. IV discontinued, intact, as6 bleeding controlled, No redness/swelling at site. Pressure dressing applied. Administered Medications: 02/18 21:28 Drug: NS 0.9% 1000 ml Route: IV; Rate: 1000 ml; Site: left wrist; ld1 02/19 01:01 Follow up: Response: No adverse reaction; IV Status: Infusion continued; IV Intake: as6 1000ml 02/18 21:28 Drug: Reglan (metoCLOPramide) 10 mg Route: IVP; Site: left wrist; ld1 21:43 Follow up: Response: Adverse reaction, Physician notified ld1 :28 Drug: Benadryl (diphenhydrAMINE) 25 mg Route: IVP; Site: left wrist; ld1 21:43 Follow up: Response: Adverse reaction, Physician notified ld1 21:32 Drug: Tylenol 1000 mg Route: PO; aa9 21:32 Follow up: Response: No adverse reaction aa9 21:44 Drug: Ativan (LORazepam) 0.5 mg Route: IVP; Site: left wrist; ld1 02/19 01:02 Follow up: Response: No adverse reaction as6 02/18 22:54 Drug: Potassium Effervescent Tablet 50 mEq Route: PO; as6 02/19 01:02 Follow up: Response: No adverse reaction 02/18 23:40 Drug: NS 0.9% 1000 ml Route: IV; Rate: 1000 ml; Site: left hand; aa9 02/19 01:02 Follow up: Response: No adverse reaction; IV Status: Infusion continued; IV Intake: as6 1000ml Medication: 01:01 VIS not applicable for this client. as6 Intake: 01:01 IV: 1000ml; Total: 1000ml. as6 01:02 IV: 1000ml; Total: 2000ml. as6 Outcome: 00:37 Discharge ordered by MD. leyva 01:01 Discharged to home ambulatory, with family. as6 01:01 Condition: stable 01:01 Discharge instructions given to patient, family, Instructed on discharge instructions, follow up and referral plans. medication usage, Demonstrated understanding of instructions, follow-up care, medications, Prescriptions given X 4. 01:02 Patient left the ED. as6 Signatures: Dispatcher [employer] EDMS Arpita Ramey Maurice, MD MD mh7 Ivy Moy RN RN ld1 Skye Bryson tw5 Antonio Farley RN RN as6 Kerry Hernandez RN RN kd3 Robina Herrera RN RN aa9
[2022-02-19 01:09] VITALS: TEMP 97.9
[2022-02-19 01:16] VITALS: BP 139/94; O2SAT 95
--- NOTE | 2022-02-20 09:04 | EKG ---
Test Date: 2022-02-18 Test Time: 21:24:28 [place] Supervisor: REMI MEASUREMENT RESULTS: Intervals: Rate: 80 HI: 144 QRSD: 82 QT: 422 QTc: 486 [place]: P: 18 HI: 144 QRS: -49 T: 14 INTERPRETIVE STATEMENTS: Normal sinus rhythm Left anterior fascicular block Prolonged QT Abnormal ECG Compared to ECG 11/11/2011 15:55:16 Left anterior fascicular block now present Prolonged QT interval now present Sinus arrhythmia no longer present Electronically Signed On 02-20-22 09:02:48 CDT by Yohan Márquez
== END 2022-02-19 01:02 | disposition home or self-care (01) ==
LOC: ER 19:53
DX: U07.1 COVID-19 (principal); Z88.1 Allergy status to other antibiotic agents
CPT/HCPCS: 96361; 93005; 87070; 85025; 80048; 36415; 83735; 85610; 85379; 80076; 87081; 81003; 84484; 83690; 83880; 80307; 87804 ×2; 70450; 71045; 96375; 96374; 99284; U0003; J2765; J1200; J7030 ×2